=== PATIENT | male | born 1985 | race African-American/Black ===

== ENCOUNTER 2017-06-04 00:59 | Emergency (ER) | payer BC ==
[~2017-06-04] VITALS: Ht 170.2 cm; Wt 70.3 kg
[2017-06-04] MEDS ORDERED: OSELB75 PO (02:29)
== END 2017-06-04 02:43 | disposition home or self-care (01) ==
LOC: ER 00:59
DX: R05 Cough (principal); R50.9 Fever, unspecified; R51 Headache; R53.1 Weakness

== ENCOUNTER 2017-07-28 13:50 | Emergency (ER) | payer BC ==
[~2017-07-28] VITALS: Ht 170.2 cm; Wt 74.8 kg
--- NOTE | ~2017-07-28 | EKG ---
[place] [address] [facility] [place] [address] ELECTROCARDIOGRAM REPORT Name: HERBERT OBRIEN Room #: DEP [facility]#: [id number] Admission: 07/28/17 Attend Phys: Discharge: 07/28/17 Date of : 81 Report #: [id number] THIS REPORT FOR: //name// [facility] ED Test Date: 2017-07-28 Test Time: 14:13:08 Pat Name: HERBERT OBRIEN Department: Room: Gender: Care Giver: GIO : 1985 Requested By: Brianna Alexander Order Number: [id number] MD: Chaz Ramsey Measurements Intervals Blunt Rate: 61 P: 27 IA: 200 QRS: 41 QRSD: 87 T: 54 QT: 399 QTc: 402 Interpretive Statements Sinus rhythm Poor R wave progression No previous ECG available for comparison Electronically Signed On 07-29-2017 8:19:55 CDT by Chaz Ramsey [email or web address] <ELECTRONICALLY SIGNED> By: Chaz Ramsey MD, [facility] 07/29/17 0819 1413 1413 Chaz Ramsey MD, FACC /EPI
[~2017-07-28 13:50] MED LIST: OSELB75 PO
[2017-07-28 14:23] LABS: URINE BILIRUBIN NEGATIVE (Negative); URINE BLOOD NEGATIVE (Negative); URINE CLARITY CLEAR; URINE COLOR YELLOW; URINE GLUCOSE-RANDOM* NEGATIVE (Negative); URINE KETONES NEGATIVE (Negative); URINE LEUKOCYTES-REFLEX NEGATIVE (Negative); URINE NITRITE-REFLEX NEGATIVE (Negative); URINE PROTEIN (DIPSTICK) NEGATIVE (Negative); URINE SPECIFIC GRAVITY 1.025 (1.005-1.035); URINE UROBILINOGEN 0.2 E.U./dl (0.2-1.0)
[2017-07-28 14:30] LABS: ABSOLUTE NEUTROPHILS 2.6 thou/uL (1.4-8.2); BASOPHILS 0.8 % (0.0-2.0); EOSINOPHILS 2.7 % (0.0-3.0); HEMATOCRIT 40.3 % (42.0-52.0); HEMOGLOBIN 13.9 gm/dL (14.0-18.0); LYMPHOCYTES 35.1 % (24.0-44.0); MCH 30.5 pg (26.0-34.0); MCHC 34.6 g/dL (28.0-37.0); MCV 88.1 fL (80.0-100.0); MONOCYTES 6.5 % (1.0-8.0); PLATELET COUNT 251 thou/uL (150-400); POLYS 54.9 % (36.0-66.0); RBC 4.57 mil/uL (4.50-6.00); RDW 13.5 % (10.5-14.5); WBC 4.8 thou/uL (4.0-11.0)
[2017-07-28 14:43] LABS: CALCIUM 8.8 mg/dL (8.5-10.1); CREATININE 0.9 mg/dL (0.7-1.3); POTASSIUM 3.6 mmol/L (3.5-5.1)
== END 2017-07-28 15:27 | disposition home or self-care (01) ==
LOC: ER 13:50
PROVIDERS: Emergency Medicine
DX: R42 Dizziness and giddiness (principal); R10.9 Unspecified abdominal pain; J45.909 Unspecified asthma, uncomplicated; Z71.3 Dietary counseling and surveillance